=== PATIENT | female | born 1955 | race Caucasian/White ===

== ENCOUNTER 2023-11-23 13:07 | Emergency (ER) | payer SELFPAY ==
[~2023-11-23] VITALS: Ht 170.2 cm; Wt 79.0 kg
[2023-11-23 13:18] VITALS: O2SAT 96
[2023-11-23] MEDS ORDERED: PREDNISONE 20MG TABLET PO ONE (15:30)
[2023-11-23] MEDS ORDERED: ALBUTEROL (0.083%) 2.5MG/3ML NEB HHN ONE (15:30)
[2023-11-23] MEDS ORDERED: ACETAMINOPHEN 325MG TABLET PO ONE (15:45)
[2023-11-23 16:13] VITALS: PULSE 90; RESP 20
[2023-11-23] MEDS ORDERED: P50 MT (16:43)
[2023-11-23 16:52] VITALS: BP 148/93; PULSE 90; RESP 20; TEMP 100.2
== END 2023-11-23 16:54 | disposition home or self-care (01) ==
LOC: ER 14:00
DX: B34.9 Viral infection, unspecified (principal); J45.909 Unspecified asthma, uncomplicated
CPT/HCPCS: 71045; 94640; 99285; J7512; Z7610